=== PATIENT | female | born 1955 ===

== ENCOUNTER 2021-09-17 10:00 | Inpatient (IN) | payer OTHER ==
[~2021-09-17] VITALS: Ht 162.6 cm; Wt 67.6 kg
[2021-09-17] MEDS ORDERED: GENVOYA TABLET1 EACH PO (13:28)
[2021-09-17] MEDS ORDERED: METFORMIN HCL500 M3 PO (13:29)
[2021-09-17] MEDS ORDERED: DIOVAN160 M1 PO (13:29)
[2021-09-17] MEDS ORDERED: CRESTOR20 MG PO (13:29)
[2021-09-17] MEDS ORDERED: FENOFIBRATE50 MG PO (13:29)
[2021-09-17] MEDS ORDERED: HYDROCHLOROTH12.5 MG PO (13:30)
[2021-09-17] MEDS ORDERED: LEVO-T25 MCG PO (13:36)
[2021-09-22] MEDS ORDERED: HYOSCYAMINE0.125 M1 SL (12:35)
[2021-09-22] MEDS ORDERED: OXYC1TAB9 PO (12:36)
== END 2021-09-22 13:58 | disposition home or self-care (01) | DRG 331 ==
LOC: SURH 09-20 05:58 → O/R 09-20 05:58 → SURH 09-20 08:30
PROVIDERS: ADMIT Surgery; ATTEND Surgery
PROC: 07BB4ZZ Excision of Mesenteric Lymphatic, Percutaneous Endoscopic Approach (ICD-10-PCS; 2021-09-20)
PROC: 0DTF4ZZ Resection of Right Large Intestine, Percutaneous Endoscopic Approach (ICD-10-PCS; principal; 2021-09-20 08:30)
DX: D12.2 Benign neoplasm of ascending colon (principal); D12.1 Benign neoplasm of appendix; R59.0 Localized enlarged lymph nodes; R19.5 Other fecal abnormalities; Z20.822 Contact with and (suspected) exposure to COVID-19